=== PATIENT | male | born 1965 | race African-American/Black ===

== ENCOUNTER 2017-01-07 07:39 | Emergency (ER) | payer SELFPAY ==
[~2017-01-07] VITALS: Ht 182.9 cm; Wt 90.7 kg
[2017-01-07 07:59] VITALS: BP 158/95
--- NOTE | 2017-01-07 08:59 | PHYS DOC ---
Past Medical History Past Medical History: No Pertinent History Past Surgical History: No Surgical History Alcohol Use: Occasionally Drug Use: Marijuana Adult General Chief Complaint Chief Complaint: NAUSEA/VOMITING/DIARRHA HPI HPI Patient is a 51 year old male presents to the emergency department with as history of cough, sinus pressure nausea and vomiting with diarrhea. Patient states he has not vomited since Sunday he has had 2 diarrhea stools that are liquid with stool, denies blood. He states he has had normal nasal drainage. Denies cough being productive. Patient states he has taken tylenol with relief. Review of Systems Review of Systems Constitutional: Denies fever or chills [] Eyes: Denies change in visual acuity, redness, or eye pain [] HENT: nasal congestion denies sore throat [] Respiratory: cough denies shortness of breath [] Cardiovascular: No additional information not addressed in HPI [] GI: upper abdominal pain, nausea, diarrhea denies vomiting, bloody stools or diarrhea [] : Denies dysuria or hematuria [] Musculoskeletal: Denies back pain or joint pain [] Integument: Denies rash or skin lesions [] Neurologic: Denies headache, focal weakness or sensory changes [] Current Medications Current Medications Current Medications Medications (Trade) Dose Ordered Sig/Patrick Start Time Stop Time Status Last Admin Dose Admin Ondansetron HCl (Zofran Odt) 4 mg 1X ONCE 01/07/17 09:00 01/07/17 09:01 DC 01/07/17 09:02 4 MG Allergies Allergies Allergies Coded Allergies Type Severity Reaction Last Updated Verified No Known Drug Allergies 04/24/15 No Physical Exam Physical Exam Constitutional: Well developed, well nourished, no acute distress, non-toxic appearance. [] HENT: Normocephalic, atraumatic, bilateral external ears normal, oropharynx moist, no oral exudates, nose normal. Bilateral tympanic membranes appear to be normal. Throat with postnasal drip noted. Patient with maxillary sinus tenderness. Eyes: PERRLA, EOMI, conjunctiva normal, no discharge. [] Neck: Normal range of motion, no tenderness, supple, no stridor. [] Cardiovascular:Heart rate regular rhythm, no murmur [] Lungs & Thorax: Bilateral breath sounds clear to auscultation [] Abdomen: Bowel sounds hypoactive, soft, upper tenderness, no masses, no pulsatile masses. No guarding noted Skin: Warm, dry, no erythema, no rash. [] Back: No tenderness Extremities: No tenderness, no cyanosis, no clubbing, ROM intact, no edema. [] Neurologic: Alert and oriented X 3, normal motor function, normal sensory function, no focal deficits noted. [] Psychologic: Affect normal, judgement normal, mood normal. [] Current Patient Data Vital Signs Vital Signs Date Time Temp Pulse Resp B/P Pulse Ox O2 Delivery O2 Flow Rate FiO2 01/07/17 07:59 97.9 71 16 98 Room Air 97.9 EKG EKG [] Radiology/Procedures Radiology/Procedures [][facility] [address] [place], [place] [id number] IMAGING REPORT Signed PATIENT: TANA PETERSON ACCOUNT: [id number] : 1965 LOCATION: ER AGE: 51 SEX: M EXAM STATUS: REG ER ORD. PHYSICIAN: VIVEK YOON NP REASON: upper abd pain with nausea and diarrhea PROCEDURE: ACUTE ABDOMEN SERIES Indication abdominal pain. A single view of the chest as well as flat and upright films of the abdomen were obtained. The chest is compared to a study 07/15/2007. The heart and pulmonary vessels are normal. The lungs are clear. There is a calcified granuloma in the right lung similar to the previous exam. There is no free air. The abdominal gas pattern is normal. Benign-appearing calcifications are noted in the pelvis. No definite organomegaly or abnormal calculi are seen. IMPRESSION: No acute or significant finding seen in the chest or abdomen on plain films. DICTATED and SIGNED BY: MAURY BENNETT MD DATE: 01/07/17 0853 CC: VIVEK YOON PHYSICIAN PEDIATRICIAN; NO PCP ~ Course & Med Decision Making Course & Med Decision Making Pertinent Labs and Imaging studies reviewed. (See chart for details) Acute abdominal x-ray was negative. Patient will be discharged home on doxycycline for sinusitis and provided with zofran for nausea and vomiting. Recommended clear liquid diet for the next 24 hours. Patient was also recommended to use Imodium for the diarrhea. Signs and symptoms to return to the emergency department has been provided. Patient will be discharged home in stable condition. Patient agrees with discharge instructions, treatment regimen and followup recommendations. [] Dragon Disclaimer Dragon Disclaimer This electronic medical record was generated, in whole or in part, using a voice recognition dictation system. Departure Departure Impression: Primary Impression: Sinusitis, acute Additional Impression: Nausea vomiting and diarrhea Disposition: HOME, SELF-CARE Condition: STABLE Referrals: NO PCP (PCP) Patient Instructions: Clear Liquid Diet, [id number], Diarrhea, [id number], Nausea, Adult, [id number]-[id number], Sinusitis, [id number] Additional Instructions: You abdominal x-ray was negative. Home to rest Medication as prescribed Tylenol or Ibuprofen for fever, chills or generalized body ache Clear liquid diet for the next 24 hours Followup with primary care provider in 5-7 days Return to emergency department as needed for signs and symptoms that become worse. Scripts Ondansetron (Zofran Odt)4 Mg Tab.rapdis1 Tab SL Q8HRS #10 TAB Prov:VIVEK YOON NP 01/07/17 Amoxicillin 500 Mg Capsule1 Cap PO BID #20 CAP Prov:VIVEK YOON PHYSICIAN PEDIATRICIAN 01/07/17 Problem Qualifiers VIVEK YOON NP Jan 07, 2017 08:59
[2017-01-07] MEDS ORDERED: ONDANSETRON ODT 4 MG TAB.RAPDIS PO ONE (09:00)
[2017-01-07] MEDS ORDERED: ONDA4TAB10 SL (09:15)
[2017-01-07] MEDS ORDERED: AMOX500C PO (09:15)
== END 2017-01-07 09:30 | disposition home or self-care (01) ==
LOC: ER 07:39
DX: R11.2 Nausea with vomiting, unspecified (principal); R19.7 Diarrhea, unspecified; J01.90 Acute sinusitis, unspecified; F12.10 Cannabis abuse, uncomplicated
CPT/HCPCS: 74022; 99284; Q0162

== ENCOUNTER 2018-03-06 10:25 | Emergency (ER) | payer SELFPAY ==
[2018-03-06 11:04] LABS: BILIRUBIN,URINE NEGATIVE (NEG); CLARITY,URINE CLEAR; COLOR,URINE YELLOW; GLUCOSE,URINE NEGATIVE (NEG); NITRITE,URINE NEGATIVE (NEG); PROTEIN,URINE NEGATIVE (NEG-TRACE); UROBILINOGEN,URINE 0.2 mg/dL (0.2 mg/dL)
[2018-03-06 11:18] LABS: BACTERIA,URINE 0 /HPF (0-FEW); RBC,URINE 0 /HPF (0-2); SQUAMOUS EPITHELIAL CELL,UR FEW /LPF; WBC,URINE 0 /HPF (0-4)
[2018-03-06] MEDS: oxyCODONE/APAP 5/325 1 TAB TABLET PO (11:34)
[2018-03-06] MEDS: KETOROLAC 60 MG/2 ML INJ. IM (11:34)
== END 2018-03-06 13:00 | disposition home or self-care (01) ==
LOC: ER 10:25
DX: M51.36 Other intervertebral disc degeneration, lumbar region (principal); F12.10 Cannabis abuse, uncomplicated
CPT/HCPCS: 72100; 81001; 96372; 99285; J1885

== ENCOUNTER 2018-06-10 10:12 | Emergency (ER) | payer SELFPAY ==
[2018-06-10] MEDS: HYDROcodone/APAP 5/325MG 1 TAB TABLET PO (10:43)
[2018-06-10] MEDS: CYCLOBENZAPRINE 10 MG TABLET. PO (10:43)
[2018-06-10] MEDS: NAPROXEN 500 MG TABLET PO (10:43)
== END 2018-06-10 11:55 | disposition home or self-care (01) ==
LOC: ER 11:55
DX: S30.0XXA Contusion of lower back and pelvis, initial encounter (principal); M47.896 Other spondylosis, lumbar region; M19.90 Unspecified osteoarthritis, unspecified site; W18.39XA Other fall on same level, initial encounter; Y93.89 Activity, other specified; Y92.89 Other specified places as the place of occurrence of the external cause; Y99.8 Other external cause status
CPT/HCPCS: 72131; 99284

== ENCOUNTER 2021-07-11 11:13 | Emergency (ER) | payer SELFPAY ==
[~2021-07-11] VITALS: Ht 182.9 cm; Wt 81.0 kg
[~2021-07-11 11:13] MED LIST: AMOX500C PO; CYCL10TA2 PO; IBUP-1060 PO; METH4TAB2 PO; NAPR500T8 PO; ONDA4TAB10 SL; OXYC1TAB15 PO
[2021-07-11] MEDS ORDERED: fentaNYL PF VIAL 100 MCG/2 ML VIAL IVP ONE (12:15)
[2021-07-11] MEDS ORDERED: IV NORMAL SALINE 1000ML BAG 1,000 ML IV SCH (12:15)
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
[2021-07-11 12:39] LABS: BILIRUBIN,URINE SMALL (NEG); CLARITY,URINE CLEAR; COLOR,URINE YELLOW; NITRITE,URINE NEGATIVE (NEG); PH,URINE 5.5 (<5.0-8.0); PROTEIN,URINE NEGATIVE (NEG-TRACE); UROBILINOGEN,URINE 0.2 mg/dL (0.2 mg/dL)
[2021-07-11 12:42] LABS: BASO % 1 % (0-3); EOS # 0.1 x10^3/uL (0.0-0.7); EOS % 1 % (0-3); HEMOGLOBIN 17.5 g/dL (13.0-17.5); LYMPH # 2.1 x10^3/uL (1.0-4.8); LYMPH % 37 % (24-48); MEAN CORPUSCULAR HEMOGLOBIN 31 pg (25-35); MEAN CORPUSCULAR HGB CONC 34 g/dL (31-37); MEAN CORPUSCULAR VOLUME 89 fL (79-100); MONO # 0.4 x10^3/uL (0.0-1.1); MONO % 7 % (0-9); NEUT # 3.1 x10^3/uL (1.8-7.7); NEUT % 54 % (31-73); PLATELET COUNT 168 x10^3/uL (140-400); RED BLOOD COUNT 5.71 x10^6/uL (4.30-5.70); RED CELL DISTRIBUTION WIDTH 13.5 % (11.5-14.5); WHITE BLOOD COUNT 5.7 x10^3/uL (4.0-11.0)
[2021-07-11 12:53] LABS: RBC,URINE 0 /HPF (0-2); WBC,URINE 0 /HPF (0-4)
[2021-07-11 12:54] LABS: BACTERIA,URINE 0 /HPF (0-FEW)
[2021-07-11 12:56] LABS: CALCIUM 8.9 mg/dL (8.5-10.1); CREATININE 1.2 mg/dL (0.7-1.3); GFR 75.8; POTASSIUM 4.3 mmol/L (3.5-5.1)
[2021-07-11] MEDS ORDERED: IOHEXOL 300 MG/ML 100ML VIAL. IV ONE (13:00)
[2021-07-11 13:03] LABS: ALBUMIN 3.4 g/dL (3.4-5.0); ALBUMIN/GLOBULIN RATIO 0.9 (1.0-1.7); TOTAL BILIRUBIN 0.6 mg/dL (0.2-1.0)
[2021-07-11] MEDS ORDERED: CONTRAST GIVEN. MC PRN (13:15)
--- NOTE | 2021-07-11 14:02 | RAD ---
EXAMINATION: CT abdomen and pelvis with IV contrast. INDICATION:55 years, Male, abdominal pain. TECHNIQUE: Axial CT images of the abdomen and pelvis were obtained. Coronal and sagittal reformatted performed. COMPARISON: None. Exposure: One or more of the following individualized dose reduction techniques were utilized for thi s examination: 1. Automated exposure control 2. Adjustment of the mA and/or kV according to patient size 3. Use of iterative reconstruction technique. FINDINGS: LOWER CHEST: Calcified granuloma in the right lower lobe. ABDOMEN/PELVIS: Mild hepatomegaly with diffuse steatosis, measures 19 cm in length. No suspicious focal hepatic lesio n. Unremarkable gallbladder. No biliary ductal dilation. No splenomegaly. Unremarkable pancreas. Nodu lar thickening of the right adrenal gland without discrete nodule. Left adrenal gland is unremarkable . No hydronephrosis or nephrolithiasis in either kidney. No bowel obstruction or wall thickening. Few scattered colonic diverticulosis without diverticulitis. Normal caliber abdominal aorta. Mesenteric arteries and portal vein are patent. No pneumoperitoneum or ascites. Diffuse urinary bladder wall thickening, likely related to under distention. Unremarkable prostate. No suspicious pelvic masses. MUSCULOSKELETAL: No acute osseous process or suspicious lesion. Degenerative changes at L4-5. IMPRESSION: 1. No acute intra-abdominal findings. 2. Mild hepatomegaly mild diffuse steatosis. 3. Few scattered colonic diverticulosis without acute diverticulitis. 4. Diffuse urinary bladder wall thickening, likely related to under distention. Correlate with urina lysis. Electronically signed by: Wayne Wheeler MD (07/11/2021 2:00 PM) [facility]
[2021-07-11] MEDS ORDERED: ONDA4TAB7 PO (14:42)
[2021-07-11 14:52] VITALS: BP 154/91
== END 2021-07-11 14:51 | disposition home or self-care (01) ==
LOC: ER 11:13
DX: R12 Heartburn (principal); R19.7 Diarrhea, unspecified; R10.30 Lower abdominal pain, unspecified; F17.200 Nicotine dependence, unspecified, uncomplicated
CPT/HCPCS: 36415; 74177; 80053; 81001; 83690; 85025; 96361; 96374; 99285; J3010; J7030; Q9967